=== PATIENT | female | born 1990 | race Native Hawaiian/Other Pacific Islander ===

== ENCOUNTER 2017-03-22 23:45 | Observation (INO) | payer SELFPAY ==
--- NOTE | 2017-03-22 23:59 | ED PDOC ---
HPI: Psych/Substance Abuse Time Seen by Provider: 03/22/17 23:59 Chief Complaint (Nursing): Alcohol Ingestion Chief Complaint (Provider): etoh History Per: Patient, EMS Additional Complaint(s): 27-year-old female presents to emergency department with acute alcohol intoxication. Patient states that she drank too much this evening and became sick. Patient is vomiting upon arrival. She denies any associated drug use. Patient denies any abdominal pain and she denies any falls. Past Medical History Reviewed: Historical Data, Nursing Documentation, Vital Signs - Medical History PMH: No Chronic Diseases - Surgical History Surgical History: No Surg Hx - Family History Family History: States: No Known Family Hx - Living Arrangements Living Arrangements: With Family - Social History Current smoker - smoking cessation education provided: No Alcohol: Social Drugs: Denies - Allergies Allergies/Adverse Reactions: Allergies Allergy/AdvReac Type Severity Reaction Status Date / Time No Known Allergies Allergy Verified 03/22/17 23:58 Review of Systems ROS Statement: Except As Marked, All Systems Reviewed And Found Negative Gastrointestinal: Positive for: Nausea, Vomiting. Negative for: Abdominal Pain Psych: Positive for: Other (etoh) Physical Exam - Reviewed Nursing Documentation Reviewed: Yes - Physical Exam Appears: Positive for: Well, Non-toxic, No Acute Distress Eye Exam: Positive for: Normal appearance, EOMI, PERRL Cardiovascular/Chest: Positive for: Regular Rate, Rhythm Respiratory: Positive for: CNT, Normal Breath Sounds Gastrointestinal/Abdominal: Positive for: Normal Exam, Soft. Negative for: Tenderness Neurologic/Psych: Positive for: Alert, Other (intoxicated, answers some questions appropriately) - Laboratory Results Result Diagrams: 03/23/17 00:56 03/23/17 00:56 - ECG O2 Sat by Pulse Oximetry: 98 Pulse Ox Interpretation: Normal Medical Decision Making Medical Decision Makin27 year old intoxicated female with nausea and vomiting Plan: Admit to ED observation CBC CMP BAL Serum beta quant IVF IV zofran ED OBSERVATION Date of observation admission: 03/23/17 Time of observation admission: 01:05 - Observation admission statement Patient is being placed in observation because:: acute etoh intoxication - Goals of Observation Goals of observation are:: Monitor patient while acutely intoxicated pending sobriety - Progress Note Progress Note: 03/23/17 01:20 BAL is 248, patient is asleep, arousable, vital signs stable 03/23/17 03:29 Patient is awake alert, has steady gait, she is stable for discharge. Disposition - Clinical Impression Clinical Impression: Alcohol intoxication - Patient ED Disposition Is Patient to be Admitted: No Counseled Patient/Family Regarding: Studies Performed, Diagnosis, Need For Followup - Disposition Disposition: Routine/Home Disposition Time: 03:29 Condition: STABLE - POA Present On Arrival: None Results - Lab Results Lab Results: 03/23/17 03/23/17 03/23/17 00:56 00:56 00:56 WBC 5.7 RBC 4.25 Hgb 11.3 L Hct 35.2 MCV 82.8 MCH 26.7 L MCHC 32.2 L RDW 13.9 Plt Count 313 MPV 7.9 Neut % (Auto) 45.9 L Lymph % (Auto) 45.2 H [place] % (Auto) 6.6 Eos % (Auto) 1.2 Baso % (Auto) 1.1 Neut # 2.6 Lymph # 2.6 [place] # 0.4 Eos # 0.1 Baso # 0.1 Sodium 148 Potassium 3.6 Chloride 107 Carbon Dioxide 23 Anion Gap 22 H BUN 9 Creatinine 0.6 L Est GFR ( Amer) > 60 Est GFR (Non-Af Amer) > 60 Random Glucose 112 H Calcium 9.6 Total Bilirubin 0.3 AST 30 ALT 37 Alkaline Phosphatase 56 Total Protein 8.0 Albumin 4.9 Globulin 3.1 Albumin/Globulin Ratio 1.6 Lipase 81 Beta HCG, Quant < 2.39 Alcohol, Quantitative 248 H
[2017-03-23 00:01] VITALS: O2SAT 98
[2017-03-23] MEDS ORDERED: Sodium Chloride 0.9% 1,000 ML IV STA (00:16)
[2017-03-23 01:00] LABS: BASO # 0.1 K/uL (0.0-0.2); BASO % 1.1 % (0.0-2.0); EOS # 0.1 K/uL (0.0-0.7); EOS % 1.2 % (0.0-4.0); HEMATOCRIT 35.2 % (34.0-47.0); LYMPH # 2.6 K/uL (1.0-4.3); LYMPH % 45.2 % (20.0-40.0); MEAN CELL VOLUME 82.8 fl (81.0-99.0); MEAN CORPUSCULAR HEMOGLOBIN 26.7 pg (27.0-31.0); MEAN CORPUSCULAR HGB CONC 32.2 g/dL (33.0-37.0); MEAN PLATELET VOLUME 7.9 fl (7.2-11.7); MONO # 0.4 K/uL (0.0-0.8); MONO % 6.6 % (0.0-10.0); NEUT # 2.6 K/uL (1.8-7.0); NEUT % 45.9 % (50.0-75.0); NRBC % 0.1 % (0.0-0.0); RED CELL DISTRIBUTION WIDTH 13.9 % (11.5-14.5); WHITE BLOOD COUNT 5.7 K/uL (4.8-10.8)
[2017-03-23 01:10] LABS: ALB/GLOB RATIO 1.6 (1.0-2.1); ALKALINE PHOSPHATASE 56 U/L (38-126); ALT/SGPT 37 U/L (9-52); AST/SGOT 30 U/L (14-36); BILIRUBIN,TOTAL 0.3 mg/dl (0.2-1.3); BLOOD UREA NITROGEN 9 mg/dl (7-17); CALCIUM 9.6 mg/dL (8.4-10.2); CARBON DIOXIDE 23 mmol/L (22-30); CHLORIDE 107 mmol/L (98-107); GFR AFRICAN-AMERICAN > 60; GLUCOSE,RANDOM 112 mg/dL (65-105); LIPASE 81 U/L (23-300); POTASSIUM 3.6 MMOL/L (3.6-5.0); SODIUM 148 mmol/l (132-148)
[2017-03-23 03:22] VITALS: BP 106/65; PULSE 92; RESP 18; TEMP 97.7
== END 2017-03-23 03:31 | disposition home or self-care (01) ==
LOC: H.ER 23:45 → H.EROBSV 03-23 01:05
PROVIDERS: ADMIT Emergency Medicine; ATTEND Emergency Medicine
DX: F10.129 Alcohol abuse with intoxication, unspecified (principal); Y90.8 Blood alcohol level of 240 mg/100 ml or more
CPT/HCPCS: 80053; 82948; 83690; 84702; 85025; 99283; G0378; G0480; J2405; J7040